=== PATIENT | male | born 1960 | race Caucasian/White ===

== ENCOUNTER 2024-09-08 08:54 | Day surgery (SDC) | payer BC ==
[2024-09-08] MEDS ORDERED: Midazolam 1 MG/ML 2 ML SDV ONE (09:35)
[2024-09-08] MEDS ORDERED: Propofol 200 MG/20 ML SDV ONE (09:35)
[2024-09-08] MEDS ORDERED: fentaNYL 50 MCG/ML SDV ONE (09:35)
[2024-09-08] MEDS ORDERED: Flumazenil 0.1 MG/ML 10 ML MDV ONE (09:35)
[2024-09-08] MEDS: Lactated Ringers 1,000 ML IV SCH (09:45)
[2024-09-08 10:42] VITALS: BP 108/64; PULSE 58
== END 2024-09-08 10:50 | disposition home or self-care (01) ==
LOC: CC.SDS 08:54
PROVIDERS: ATTEND Family Medicine
DX: Z12.11 Encounter for screening for malignant neoplasm of colon (principal); D12.8 Benign neoplasm of rectum; K57.30 Diverticulosis of large intestine without perforation or abscess without bleeding; F41.9 Anxiety disorder, unspecified; E78.5 Hyperlipidemia, unspecified; N40.0 Benign prostatic hyperplasia without lower urinary tract symptoms; G47.30 Sleep apnea, unspecified; Z79.82 Long term (current) use of aspirin; Z79.899 Other long term (current) drug therapy
CPT/HCPCS: 00811; J2250; J2704; J3010; J3490; J7120